=== PATIENT | female | born 1990 | race Caucasian/White ===

== ENCOUNTER 2018-12-25 15:17 | Emergency (ER) | payer OTHER, BC ==
[2018-12-25 15:23] VITALS: BP 148/103
[2018-12-25] MEDS ORDERED: IBUPROFEN 800 MG TABLET PO ONE (15:32)
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
== END 2018-12-25 16:09 | disposition home or self-care (01) ==
LOC: ER 15:17
DX: M54.2 Cervicalgia (principal); V49.40XA Driver injured in collision with unspecified motor vehicles in traffic accident, initial encounter
CPT/HCPCS: 72125; 99283

== ENCOUNTER 2020-03-22 23:48 | Emergency (ER) | payer BC, OTHER ==
--- NOTE | 2020-03-23 00:36 | ER Document Report ---
ED Medical Screen (RME) - General Chief Complaint: Fall Stated Complaint: FALL 17 WEEKS Time Seen by Provider: 03/23/20 00:32 Primary Care Provider: GIOVANNA DURAN PA-C [Primary Care Provider] - Follow up as needed Mode of Arrival: Ambulatory Information source: Patient Notes: Patient is 17 weeks and fell on her butt today. No vaginal bleeding. No belly pain. No hematuria. Here for well-baby check General exam no acute distress Abdomen nontender Musculoskeletal moves all extremities well cardiac no peripheral edema I have greeted and performed a rapid initial assessment of this patient. A comprehensive ED assessment and evaluation of the patient, analysis of test results and completion of the medical decision making process will be conducted by additional ED providers. TRAVEL OUTSIDE OF THE [place] IN LAST 30 DAYS: No - Related Data Allergies/Adverse Reactions: No Known Allergies Allergy (Verified 12/25/18 15:18) Past Medical History Renal/ Medical History: Denies: Hx Peritoneal Dialysis Psychiatric Medical History: Reports: Hx Depression - Immunizations Hx Diphtheria, Pertussis, Tetanus Vaccination: Yes Physical Exam - Vital signs Vitals: Temp Pulse Resp BP Pulse Ox 99.0 F 100 18 146/93 H 99 03/23/20 00:00 03/23/20 00:00 03/23/20 00:00 03/23/20 00:00 03/23/20 00:00 Course - Vital Signs Vital signs: Temp Pulse Resp BP Pulse Ox 99.0 F 100 18 146/93 H 99 03/23/20 00:00 03/23/20 00:00 03/23/20 00:00 03/23/20 00:00 03/23/20 00:00 Doctor's Discharge - Discharge Referrals: GIOVANNA DURAN PA-C [Primary Care Provider] - Follow up as needed
--- NOTE | 2020-03-23 01:30 | RADIOLOGY REPORT (SQ) ---
Obstetric ultrasound: 03/23/2020 12:21 AM CDT HISTORY: 29-year-old female with recent fall. TECHNIQUE: Multiple grayscale and color Doppler images of the pelvis were obtained transabdominally. COMPARISON: None available for this . FINDINGS: A single intrauterine gestation is seen, which is cephalic in position. The placenta is anterior in location, and free of internal os of the cervix. The cervix measures at least 3.3 cm in length. The estimated heart rate is approximately 152 bpm. The ALFONZO is subjectively within normal limits detailed anatomic assessment was not performed. IMPRESSION: There is a single, live intrauterine gestation which is currently variable in position.
[2020-03-23 04:42] LABS: APPEARANCE,URINE SLIGHTLY-CLOUDY; BILIRUBIN,URINE NEGATIVE (NEGATIVE); COLOR,URINE YELLOW; GLUCOSE, URINE NEGATIVE (NEGATIVE); KETONES,URINE TRACE mg/dL (NEGATIVE); PROTEIN,URINE NEGATIVE (NEGATIVE); URINE SPECIFIC GRAVITY 1.023; UROBILINOGEN,URINE NEGATIVE mg/dL (<2.0)
--- NOTE | 2020-03-23 04:48 | ER Document Report ---
HPI - HPI Time Seen by Provider: 03/23/20 00:32 Pain Level: Denies Notes: Otherwise healthy 29-year-old female presenting to the emergency department chief complaint of fall. Patient reports she is approximately 17 weeks she reports she was standing in the kitchen with her feet on a rug when the rug slipped out from under her and she fell straight down onto her buttocks. She denies any abdominal pain or vaginal bleeding. She is requesting to have a well check for her . She denies any abnormal vaginal discharge or any passage of fluids. - ROS ROS below otherwise negative: Yes Notes: Patient denies any active symptoms. Systems Reviewed and Negative: Yes All other systems reviewed and negative - REPRODUCTIVE Reproductive: REPORTS: : Past Medical History - General Information source: Patient - Social History Smoking Status: Never Smoker Frequency of alcohol use: None Drug Abuse: None Family History: Reviewed & Not Pertinent Renal/ Medical History: Denies: Hx Peritoneal Dialysis Psychiatric Medical History: Reports: Hx Depression Surgical Hx: Negative - Immunizations Hx Diphtheria, Pertussis, Tetanus Vaccination: Yes Vertical Provider Document - CONSTITUTIONAL Notes: PHYSICAL EXAMINATION: GENERAL: Well-appearing, well-nourished and in no acute distress. HEAD: Atraumatic, normocephalic. EYES: Pupils equal round extraocular movements intact, conjunctiva are normal. ENT: Nares patent NECK: Normal range of motion LUNGS: No respiratory distress Abdomen: Abdomen soft, nontender. Musculoskeletal: Normal range of motion NEUROLOGICAL: Normal speech, normal gait. PSYCH: Normal mood, normal affect. SKIN: Warm, Dry, normal turgor, no rashes or lesions noted. - INFECTION CONTROL TRAVEL OUTSIDE OF THE [place] IN LAST 30 DAYS: No Course - Re-evaluation Re-evalutation: Obstetrics Ultrasound 03/23/20 00:33 IMPRESSION: There is a single, live intrauterine gestation which is currently variable in position. Laboratory 03/23/20 03:48 Urine Color YELLOW Urine Appearance SLIGHTLY-CLOUDY Urine pH 5.0 Ur Specific Vining 1.023 Urine Protein NEGATIVE Urine Glucose (UA) NEGATIVE Urine Ketones TRACE H Urine Blood NEGATIVE Urine Nitrite (Reflex) NEGATIVE Urine Bilirubin NEGATIVE Urine Urobilinogen NEGATIVE Leukocyte Esterase Rfl NEGATIVE Urine RBC (Auto) 1 Urine WBC (Reflex) 2 Squamous Epi Cells Auto 3 Urine Mucus (Auto) MANY Urine Ascorbic Acid NEGATIVE Urinalysis is unremarkable. Obstetrics ultrasound was reassuring. This was all discussed with the patient. Patient will follow-up with [facility]. Strict return precautions discussed, patient and spouse verbalized understanding and agreement with same. - Vital Signs Vital signs: Temp Pulse Resp BP Pulse Ox 99.0 F 100 18 146/93 H 99 03/23/20 00:00 03/23/20 00:00 03/23/20 00:00 03/23/20 00:00 03/23/20 00:00 - Laboratory Laboratory results interpreted by me: 03/23/20 03:48 Urine Ketones TRACE H Discharge - Discharge Clinical Impression: Fall during Condition: Stable Disposition: HOME, SELF-CARE Additional Instructions: Your work-up today was reassuring. Ultrasound was normal. Please follow-up with [facility]. Return to the emergency department if you develop abdominal pain or vaginal bleeding. Referrals: GIOVANNA DURAN PA-C [Primary Care Provider] - Follow up as needed
[2020-03-23 05:05] VITALS: BP 138/78
== END 2020-03-23 04:53 | disposition home or self-care (01) ==
LOC: ER 23:48
DX: Z34.90 Encounter for supervision of normal pregnancy, unspecified, unspecified trimester (principal); Z3A.00 Weeks of gestation of pregnancy not specified
CPT/HCPCS: 76815; 81001; 99284